=== PATIENT | female | born 1995 ===

== ENCOUNTER 2018-01-30 17:28 | Emergency (ER) | payer MEDICAID, OTHER ==
[2018-01-30 17:51] VITALS: BMI 18.6
[2018-01-30 17:57] VITALS: RESP 18; TEMP 98.4
--- NOTE | 2018-01-30 18:41 | ED PDOC ---
Arrival/HPI - General Chief Complaint: GI Problem Time Seen by Provider: 01/30/18 18:30 Historian: Patient - History of Present Illness Narrative History of Present Illness (Text): 01/30/18 18:41 This 22 yo female presents to this ED c/o nausea x 7 days. Patient denies abdominal pain, pelvic pain, urinary symptoms, sob, cp, recent travel or sick contact. Time/Duration: Other (see hpi) Context: Home Past Medical History - Provider Review Nursing Documentation Reviewed: Yes - Infectious Disease Hx of Infectious Diseases: None - Psychiatric Hx Substance Use: Yes Family/Social History - Physician Review Nursing Documentation Reviewed: Yes Family/Social History: Other (noncontributory) Smoking Status: Never Smoked Hx Alcohol Use: Yes Frequency of alcohol use: Socially Hx Substance Use: Yes Substance used: marijuana - as per pt she stopped on friday Allergies/Home Meds Allergies/Adverse Reactions: Allergies No Known Allergies Allergy (Verified 01/30/18 17:51) Home Medications: Home Meds Medication Instructions Recorded Confirmed Amoxicillin [Amoxil 250 mg Cap] 1 cap PO DAILY 01/30/18 01/30/18 Review of Systems - Review of Systems Constitutional: Normal. absent: Fatigue, Weight Change, Fevers, Night Sweats Eyes: Normal ENT: Normal Respiratory: Normal. absent: SOB, Cough Cardiovascular: Normal. absent: Chest Pain Gastrointestinal: Nausea, Appetite Changes. absent: Abdominal Pain, Stool Changes, Constipation, Diarrhea, Vomiting Genitourinary Female: Normal. absent: Dysuria, Frequency, Hematuria, Urine Output Changes, Vaginal Bleeding, Vaginal Discharge Musculoskeletal: Normal. absent: Back Pain, Neck Pain Skin: Normal. absent: Rash Neurological: Normal. absent: Headache, Dizziness Endocrine: Normal Hemo/Lymphatic: Normal Psychiatric: Normal Physical Exam Vital Signs Temp Pulse Resp BP Pulse Ox 01/30/18 21:00 80 18 122/74 100 01/30/18 17:56 98.4 F 99 H 18 124/83 98 Temperature: Afebrile Blood Pressure: Normal Pulse: Regular Respiratory Rate: Normal Appearance: Positive for: Well-Appearing, Non-Toxic, Comfortable Pain Distress: None Mental Status: Positive for: Alert and Oriented X 3 - Systems Exam Head: Present: Atraumatic, Normocephalic Pupils: Present: PERRL Extroacular Muscles: Present: EOMI Conjunctiva: Present: Normal Mouth: Present: Moist Mucous Membranes Neck: Present: Normal Range of Motion Respiratory/Chest: Present: Clear to Auscultation, Good Air Exchange. No: Respiratory Distress, Accessory Muscle Use Cardiovascular: Present: Regular Rate and Rhythm, Normal S1, S2. No: Murmurs Abdomen: Present: Normal Bowel Sounds. No: Tenderness, Distention, Peritoneal Signs, Rebound, Guarding Back: Present: Normal Inspection. No: CVA Tenderness, Midline Tenderness, Paraspinal Tenderness, Pain with Leg Raise Upper Extremity: Present: Normal Inspection, Normal ROM, NORMAL PULSES, Neurovascularly Intact, Capillary Refill < 2s. No: Cyanosis, Edema Lower Extremity: Present: Normal Inspection, CALF TENDERNESS, NORMAL PULSES, Normal ROM, Neurovascularly Intact, Capillary Refill < 2 s. No: Edema Neurological: Present: GCS=15, CN II-XII Intact, Speech Normal, Motor Func Grossly Intact, Normal Sensory Function, Normal Cerebellar Funct, Gait Normal Skin: Present: Warm, Dry, Normal Color. No: Rashes Psychiatric: Present: Alert, Oriented x 3, Normal Insight, Normal Concentration Medical Decision Making ED Course and Treatment: 01/30/18 20:26 Re-evaluation. Patient feels better. Discussed results and plan with patient who expresses understanding. All questions answered and there is agreement with the plan to discharge home with instructions. Patient stable for discharge. Return if symptoms persist or worsen. I reviewed labs with patient. Patient feels well, and she wishes to be discharged home. I recommended patient to see her PMD in 1-2 days.. Patient understood plan. Abdomen is soft, nt/nd Re-evaluation Time: 20:27 Reassessment Condition: Re-examined, Improved - Lab Interpretations Lab Results: 01/30/18 19:17 01/30/18 19:17 Lab Results 01/30/18 19:17: Sodium 144, Potassium 4.1, Chloride 102, Carbon Dioxide 27, Anion Gap 19, BUN 13, Creatinine 0.8, Est GFR ( Amer) > 60, Est GFR (Non- Af Amer) > 60, Random Glucose 91, Calcium 9.6, Total Bilirubin 2.4 H, AST 29, ALT 31, Alkaline Phosphatase 44, Total Protein 8.5 H, Albumin 5.0 H, Globulin 3.6, Albumin/Globulin Ratio 1.4 06/08/18 19:17: WBC 7.0, RBC 4.88, Hgb 15.5, Hct 43.2, MCV 88.5, MCH 31.8, MCHC 35.9, RDW 12.3, Plt Count 219, MPV 10.5, Gran % 69.7 H, Lymph % (Auto) 24.7, [place] % (Auto) 5.0, Eos % (Auto) 0.3 L, Baso % (Auto) 0.3, Gran # 4.86, Lymph # ( Auto) 1.7, [place] # (Auto) 0.4, Eos # (Auto) 0.0, Baso # (Auto) 0.02 01/30/18 18:43: Urine Color Yellow, Urine Appearance Clear, Urine pH 6.0, Ur Specific [place] 1.025, Urine Protein Negative, Urine Glucose (UA) Negative, Urine Ketones 15 H, Urine Blood Negative, Urine Nitrate Negative, Urine Bilirubin Negative, Urine Urobilinogen 2.0 H, Ur Leukocyte Esterase Negative, Urine HCG, Qual Negative I have reviewed the lab results: Yes Interpretation: No clinic. lab abnormalty - Medication Orders Current Medication Orders: Discontinued Medications Sodium Chloride (Sodium Chloride 0.9%) 1,000 mls @ 999 mls/hr IV .Q1H1M STA Stop: 01/30/18 19:42 Last Admin: 01/30/18 19:18 Dose: 999 mls/hr eMAR Start Stop Document 01/30/18 19:18 EQ (Rec: 01/30/18 19:18 EQ [id number]) Intravenous Solution Start Date 01/30/18 Start Time 19:18 Ondansetron HCl (Zofran Inj) 4 mg IVP STAT STA Stop: 01/30/18 19:29 Last Admin: 01/30/18 19:59 Dose: 4 mg IVP Administration Document 01/30/18 19:59 EQ (Rec: 01/30/18 19:59 EQ [id number]) Charges for Administration # of IVP Administrations 1 Disposition/Present on Arrival - Present on Arrival Any Indicators Present on Arrival: No History of DVT/PE: No History of Uncontrolled Diabetes: No Urinary Catheter: No History of Decub. Ulcer: No History Surgical Site Infection Following: None - Disposition Have Diagnosis and Disposition been Completed?: Yes Diagnosis: Nausea, Decreased appetite Disposition: HOME/ ROUTINE Disposition Time: 20:32 Patient Plan: Discharge Condition: IMPROVED Discharge Instructions (ExitCare): Nausea and Vomiting, Adult (DC) Additional Instructions: Call private doctor for follow up visit. Take medication as instructed. Return to emergency if you develop abdominal pain or worsening of symptoms. Prescriptions: Famotidine [Pepcid] 40 mg PO DAILY #10 tablet Ondansetron ODT [Zofran ODT] 4 mg PO Q4H PRN #15 odt PRN Reason: Nausea/Vomiting Referrals: [facility], [Non-Staff] - Follow up with primary [facility] [Outside] - Follow up with primary [facility] [Outside] - Follow up with primary Forms: [employer] (Telugu), WORK NOTE
[2018-01-30] MEDS ORDERED: Sodium Chloride 0.9% 1,000 ML IV STA (18:42)
[2018-01-30 18:59] LABS: URINE BILIRUBIN NEGATIVE (NEGATIVE); URINE BLOOD NEGATIVE (NEGATIVE); URINE GLUCOSE (UA) NEGATIVE (NEGATIVE); URINE LEUKOCYTE ESTERASE NEGATIVE Leu/uL (NEGATIVE); URINE PROTEIN NEGATIVE mg/dL (<30 mg/dL)
[2018-01-30 19:01] LABS: URINE APPEARANCE CLEAR (CLEAR); URINE COLOR YELLOW (YELLOW)
[2018-01-30 19:02] LABS: HCG,QUALITATIVE URINE NEGATIVE (NEGATIVE)
[2018-01-30 19:23] LABS: BASO # 0.02 K/mm3 (0.0-2.0); BASO % 0.3 % (0.0-3.0); EOS % 0.3 % (1.5-5.0); GRAN # 4.86 (1.4-6.5); GRAN % 69.7 % (50.0-68.0); HEMOGLOBIN 15.5 g/dL (12.0-16.0); LYMPH # 1.7 (1.2-3.4); LYMPH % 24.7 % (22.0-35.0); MEAN CELL VOLUME 88.5 fl (80.0-105.0); MEAN CORPUSCULAR HEMOGLOBIN 31.8 pg (25.0-35.0); MEAN CORPUSCULAR HGB CONC 35.9 g/dl (31.0-37.0); MEAN PLATELET VOLUME 10.5 fl (7.0-11.0); MONO # 0.4 (0.1-0.6); RBC 4.88 10^6/uL (3.5-6.1); RED CELL DISTRIBUTION WIDTH 12.3 % (11.5-14.5)
[2018-01-30 19:32] LABS: ALB/GLOB RATIO 1.4 (1.1-1.8); ALT/SGPT 31 U/L (7-56); AST/SGOT 29 U/L (14-36); BLOOD UREA NITROGEN 13 mg/dL (7-21); CALCIUM 9.6 mg/dL (8.4-10.5); GFR AFRICAN-AMERICAN > 60; GFR NON-AFRICAN AMERICAN > 60
[2018-01-30 21:21] VITALS: BP 122/74; PULSE 80; O2SAT 100
== END 2018-01-30 21:00 | disposition home or self-care (01) ==
LOC: ED 17:28
DX: R11.0 Nausea (principal); R63.0 Anorexia
CPT/HCPCS: 80053; 81003; 84703; 85025; 96374; 99284; J2405; J7030